=== PATIENT | female | born 1975 | race African-American/Black ===

== ENCOUNTER 2018-06-13 15:20 | Emergency (ER) | payer OTHER ==
[~2018-06-13 15:20] MED LIST: ATOR40TA24 PO; OXYC-374 PO
--- NOTE | 2018-06-13 15:31 | ER Report ---
History and Physical Time Seen By MD: 15:31 Hx. of Stated Complaint: PT STATES SHE NOTED HER HEART RACING WHILE AT WORK, HAS HAD 1 CUP OF COFFEE AT WORK. HAS INCREASED STRESS LATELY HPI/ROS CHIEF COMPLAINT: Racing heart, shortness of breath HISTORY OF PRESENT ILLNESS: 43-year-old female patient presents to emergency r oom with complaint of racing heart and shortness of breath. Patient states this started today while she was at work. 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 She did check her pulse and found her pulse rate to be 99. She did get up and go the bathroom. When she returned her heart rate was 102. Just prior to getting out of the bathroom she checked her pulse again and was 120. Patient states she felt short of breath at that time. She denies having any fevers, chills, nausea, vomiting or diarrhea. Patient states she is not taking any medication for this. Patient states she did have some chest discomfort. She states she's had this chest discomfort in termittently for the past several weeks. She states that typically occurs just once a week. Patient came here for evaluation make sure there is not anything wrong with her heart. She did speak with her sister who is a physician in [place] and was told that she likely has anxiety. REVIEW OF SYSTEMS: Respiratory: As noted above Cardiovascular: As noted above Gastrointestinal: No vomiting, no abdominal pain. Musculoskeletal: No back pain. Allergies: Coded Allergies: No Known Drug Allergies (Unverified , 11/29/13) Home Meds Active Scripts Potassium Chloride (KLOR-CON 10) 10 Meq Tablet.er, 10 MEQ PO QDAY, #14 TAB Prov:GENESIS MORALES DIRECTOR OF PROPERTY MANAGEMENT 06/13/18 Reported Medications Atorvastatin Calcium (LIPITOR) 40 Mg Tablet, 1 TAB PO QDAY, TAB TAKE ONE TABLET BY MOUTH ONCE A DAY AT BED TIME 11/29/13 Discontinued Reported Medications Oxycodone Hcl/Acetaminophen (OXYCODON-ACETAMINOPHEN 7.5-325) 1 Each Tablet, 1 EACH PO 05/08/14 Past Medical/Surgical History Patient has a past medical history of migraines, hyperlipidemia, shortness of breath, fibroids. Patient has a surgical history of uterine fibroids removed. Reviewed Nurses Notes: Yes Hx Smoking: No Smoking Status: Never Smoker Exposure to Second Hand Smoke?: No Hx Substance Use Disorder: No Hx Alcohol Use: No Constitutional Vital Sign - Last 24 Hours 06/13/18 06/13/18 06/13/18 06/13/18 15:24 15:25 15:50 15:54 Temp 98.3 Pulse 117 118 Resp 20 20 B/P (MAP) 154/116 154/116 (129) 136/105 (115) Pulse Ox 98 98 O2 Delivery Room Air 06/13/18 06/13/18 06/13/18 06/13/18 16:21 16:30 16:35 16:45 Pulse 102 Resp 13 B/P (MAP) 139/99 (112) 144/100 (115) 132/94 (107) Pulse Ox 96 06/13/18 06/13/18 06/13/18 06/13/18 16:50 17:00 17:22 17:30 Pulse 96 Resp 7 B/P (MAP) 148/78 (101) 131/94 (106) 130/92 (105) Pulse Ox 96 06/13/18 06/13/18 06/13/18 06/13/18 17:35 17:45 17:50 18:00 Pulse 95 Resp 21 13 B/P (MAP) 130/102 (111) 126/91 (103) Pulse Ox 88 96 Physical Exam General Appearance: The patient is alert, has no immediate need for airway protection and no current signs of toxicity. Respiratory: Chest is non tender, lungs are clear to auscultation. Cardiac: regular rhythm, patient is tachycardic with ventricular rate of 105 bpm Gastrointestinal: Abdomen is soft and non tender, no masses, bowel sounds normal. Musculoskeletal: Neck: Neck is supple and non tender. Extremities have full range of motion and are non tender. Skin: No rashes or lesions. DIFFERENTIAL DIAGNOSIS: After history and physical exam differential diagnosis was considered for shortness of breath including but not limited to pulmonary infectious process, COPD, asthma, pulmonary embolus and congestive heart failure. Medical Decision Making Data Points Result Diagram: 06/13/18 1530 06/13/18 1530 Laboratory Hematology Test 06/13/18 15:30 Red Blood Count 4.83 M/uL (4.17-5.56) Mean Corpuscular Volume 66.0 fL (80.0-96.0) Mean Corpuscular Hemoglobin 20.1 pg (26.0-33.0) Mean Corpuscular Hemoglobin Concent 30.5 g/dL (32.0-36.0) Red Cell Distribution Width 22.2 % (11.5-14.5) Mean Platelet Volume 9.0 fL (7.2-11.1) Neutrophils (%) (Auto) 53.8 % (39.4-72.5) Lymphocytes (%) (Auto) 35.1 % (17.6-49.6) Monocytes (%) (Auto) 10.0 % (4.1-12.4) Eosinophils (%) (Auto) 0.7 % (0.4-6.7) Basophils (%) (Auto) 0.4 % (0.3-1.4) Nucleated RBC Relative Count (auto) 0.1 /100WBC Neutrophils # (Auto) 3.0 K/uL (2.0-7.4) Lymphocytes # (Auto) 2.0 K/uL (1.3-3.6) Monocytes # (Auto) 0.6 K/uL (0.3-1.0) Eosinophils # (Auto) 0.0 K/uL (0.0-0.5) Basophils # (Auto) 0.0 K/uL (0.0-0.1) Nucleated RBC Absolute Count (auto) 0.00 K/uL Peripheral Blood Smear Y/N D-Dimer Quantitative (PE/DVT) 1.33 ug/ml (0-0.50) Urine Color Straw Urine Clarity Clear Urine pH 6.0 pH (4.8-9.5) Urine Specific Purm[place] 1.005 Urine Protein Negative mg/dL (NEGATIVE) Urine Glucose (UA) Negative mg/dL (NEGATIVE) Urine Ketones Negative mg/dL (NEGATIVE) Urine Blood Negative (NEGATIVE) Urine Nitrite Negative (NEGATIVE) Urine Bilirubin Negative (NEGATIVE) Urine Urobilinogen Negative mg/dL (0.2-1.9) Urine Leukocyte Esterase Negative (NEGATIVE) Urine RBC None /HPF (0-2/HPF) Urine WBC <1 /HPF (0-5/HPF) Urine Squamous Epithelial Cells Few /LPF (</=FEW) Urine Bacteria Negative /HPF (NONE-FEW) Urine Mucus None /HPF (NONE-FEW) Sodium Level 136 mmol/L (137-145) Potassium Level 3.0 mmol/L (3.5-5.0) Chloride Level 105 mmol/L (98-107) Carbon Dioxide Level 23 mmol/L (22-31) Blood Urea Nitrogen 11 mg/dl (7-18) Creatinine 0.80 mg/dl (0.52-1.04) Glomerular Filtration Rate Calc > 60.0 Random Glucose 114 mg/dl (75-110) Calcium Level 9.2 mg/dl (8.4-10.2) Magnesium Level 1.7 mg/dl (1.7-2.2) Total Bilirubin 0.4 mg/dl (0.2-1.3) Aspartate Amino Transf (AST/SGOT) 17 U/L (0-35) Alanine Aminotransferase (ALT/SGPT) 16 U/L (0-56) Alkaline Phosphatase 71 U/L (0-126) Troponin I < 0.012 ng/ml Total Protein 8.7 g/dl (6.3-8.2) Albumin 4.5 g/dl (3.5-5.0) Human Chorionic Gonadotropin, Qual Negative (NEGATIVE) Chemistry Test 06/13/18 15:30 White Blood Count 5.6 k/uL (4.5-11.0) Red Blood Count 4.83 M/uL (4.17-5.56) Hemoglobin 9.7 g/dL (12.0-16.0) Hematocrit 31.9 % (34.0-47.0) Mean Corpuscular Volume 66.0 fL (80.0-96.0) Mean Corpuscular Hemoglobin 20.1 pg (26.0-33.0) Mean Corpuscular Hemoglobin Concent 30.5 g/dL (32.0-36.0) Red Cell Distribution Width 22.2 % (11.5-14.5) Platelet Count 293 K/uL (150-450) Mean Platelet Volume 9.0 fL (7.2-11.1) Neutrophils (%) (Auto) 53.8 % (39.4-72.5) Lymphocytes (%) (Auto) 35.1 % (17.6-49.6) Monocytes (%) (Auto) 10.0 % (4.1-12.4) Eosinophils (%) (Auto) 0.7 % (0.4-6.7) Basophils (%) (Auto) 0.4 % (0.3-1.4) Nucleated RBC Relative Count (auto) 0.1 /100WBC Neutrophils # (Auto) 3.0 K/uL (2.0-7.4) Lymphocytes # (Auto) 2.0 K/uL (1.3-3.6) Monocytes # (Auto) 0.6 K/uL (0.3-1.0) Eosinophils # (Auto) 0.0 K/uL (0.0-0.5) Basophils # (Auto) 0.0 K/uL (0.0-0.1) Nucleated RBC Absolute Count (auto) 0.00 K/uL Peripheral Blood Smear Y/N D-Dimer Quantitative (PE/DVT) 1.33 ug/ml (0-0.50) Urine Color Straw Urine Clarity Clear Urine pH 6.0 pH (4.8-9.5) Urine Specific Purmela 1.005 Urine Protein Negative mg/dL (NEGATIVE) Urine Glucose (UA) Negative mg/dL (NEGATIVE) Urine Ketones Negative mg/dL (NEGATIVE) Urine Blood Negative (NEGATIVE) Urine Nitrite Negative (NEGATIVE) Urine Bilirubin Negative (NEGATIVE) Urine Urobilinogen Negative mg/dL (0.2-1.9) Urine Leukocyte Esterase Negative (NEGATIVE) Urine RBC None /HPF (0-2/HPF) Urine WBC <1 /HPF (0-5/HPF) Urine Squamous Epithelial Cells Few /LPF (</=FEW) Urine Bacteria Negative /HPF (NONE-FEW) Urine Mucus None /HPF (NONE-FEW) Glomerular Filtration Rate Calc > 60.0 Calcium Level 9.2 mg/dl (8.4-10.2) Magnesium Level 1.7 mg/dl (1.7-2.2) Total Bilirubin 0.4 mg/dl (0.2-1.3) Aspartate Amino Transf (AST/SGOT) 17 U/L (0-35) Alanine Aminotransferase (ALT/SGPT) 16 U/L (0-56) Alkaline Phosphatase 71 U/L (0-126) Troponin I < 0.012 ng/ml Total Protein 8.7 g/dl (6.3-8.2) Albumin 4.5 g/dl (3.5-5.0) Human Chorionic Gonadotropin, Qual Negative (NEGATIVE) Coagulation Test 06/13/18 15:30 D-Dimer Quantitative (PE/DVT) 1.33 ug/ml Urinalysis Test 06/13/18 15:30 Urine Color Straw Urine Clarity Clear Urine pH 6.0 pH (4.8-9.5) Urine Specific Purmela 1.005 Urine Protein Negative mg/dL (NEGATIVE) Urine Glucose (UA) Negative mg/dL (NEGATIVE) Urine Ketones Negative mg/dL (NEGATIVE) Urine Blood Negative (NEGATIVE) Urine Nitrite Negative (NEGATIVE) Urine Bilirubin Negative (NEGATIVE) Urine Urobilinogen Negative mg/dL (0.2-1.9) Urine Leukocyte Esterase Negative (NEGATIVE) Urine RBC None /HPF (0-2/HPF) Urine WBC <1 /HPF (0-5/HPF) Urine Squamous Epithelial Cells Few /LPF (</=FEW) Urine Bacteria Negative /HPF (NONE-FEW) Urine Mucus None /HPF (NONE-FEW) EKG/Imaging EKG Interpretation 12 lead EKG: Rhythm: Sinus tachycardia with ventricular rate of 107 bpm Cummings: normal QRS: normal ST segments: normal Imaging CT angiogram chest with contrast Indication: Tachycardia. Elevated d-dimer. Comparison: 11/29/2013. Technique: Axial CT images are obtained through the chest after administration of 75 mL Isovue 370 IV contrast. Reformatted coronal and sagittal images were reviewed as well as coronal MIP images. One of the following dose optimization techniques was utilized in the performance of this exam: automated exposure control; adjustment of the mA and/or kV according to the patient's size; or use of an iterative reconstruction technique. Specific details can be referenced in the facility's radiology CT exam operational policy. FINDINGS: No evidence of filling defect within the pulmonary vasculature to suggest pulmonary embolus. The heart is normal size without pericardial effusion. The aorta shows no aneurysm or dissection. The mediastinum and hilar regions show no enlarged lymph nodes or abnormal density. Lungs show no consolidation, pleural effusion, pneumothorax, nodule or focal interstitial opacities. Airways are clear. Bony structures show no acute fractures or aggressive bony lesions. Chest wall shows no enlarged axillary lymph nodes or masses. The anterior aspect liver does show subcentimeter hypodensity which is too small characterize and statistically tiny cyst. Upper abdomen is otherwise unremarkable. IMPRESSION: 1. No evidence of pulmonary embolus. 2. No acute cardiothoracic abnormality Report Dictated By: Trey Subramanian at 06/13/2018 5:26 PM Report E-Signed By: Trey Subramanian at 06/13/2018 5:33 PM HISTORY: chests discomfort DATE: 06/13/2018 4:43 PM TECHNIQUE: CHEST PA LAT COMPARISON: none FINDINGS: The cardiomediastinal silhouette is of normal size and contour. No pleural effusion. No pneumothorax. No consolidation. The lungs are adequately expanded. IMPRESSION: Normal chest. Report Dictated By: Sonali Paris MD at 06/13/2018 4:47 PM Report E-Signed By: Sonali Paris MD at 06/13/2018 4:51 PM ED Course/Re-evaluation ED Course Patient was admitted to an exam room, history and physical were obtained. Differential diagnoses were considered. On examination lungs are clear, heart is regular although tachycardic, abdomen is soft nontender. A CBC, CMP, troponin, EKG, chest x-ray, d-dimer, urinalysis were done. Lab results were unremarkable except the patient did have an elevated d-dimer of 1.33 as well as a low potassium of 3.0. At that time I did order a magnesium level. Magnesium level was normal at 1.7. Chest x-ray showed no acute cardio pulmonic processes. A CT scan of the chest was ordered due to the elevated d-dimer and shortness of breath. The results of that were also negative. EKG showed a sinus tachycardia, troponin was negative. I discussed the findings with the patient. Patient was also noted to be anemic at 9.7. She states that that is normal for her. She states that she has been on iron in the past, however she is not able to felicitas erate it. Patient states she is not taking anything for blood pressure and no diuretics. I'm unsure as to the reason of her low potassium. We will go ahead and put her on a 2 mEq potassium tablets for the next 2 weeks. I would like her to follow-up with her primary care provider next week for repeat lab tests. Patient did receive 40 mEq of potassium orally here in the emergency room. We will go ahead and discharge patient home at this time. I'm unsure as to the cause of her shortness of breath and chest pain. It could be related to her anemia but also related to her hypokalemia. I would like her to follow-up with her primary care provider. We will have her take the medication as directed and see if that doesn't help with her symptoms. Patient and her verbalized understanding and agreement with plan. Decision to Disposition Date: Jun 13, 2018 Decision to Disposition Time: 17:55 Depart Departure Latest Vital Signs Vital Signs Date Time Temp Pulse Resp B/P (MAP) Pulse Ox O2 Delivery O2 Flow Rate FiO2 06/13/18 18:00 126/91 (103) 06/13/18 17:50 95 13 96 06/13/18 15:24 98.3 Room Air Impression: Primary Impression: Chest pain Condition: Improved Disposition: HOME OR SELF-CARE Referrals: BLANE GAUTAM MD (PCP) New Scripts Potassium Chloride (KLOR-CON 10) 10 Meq Tablet.er 10 MEQ PO QDAY, #14 TAB Prov: GENESIS OMRALES 06/13/18 Patient Instructions: Chest Pain (ED) Additional Instructions: Continue with normal diet. Follow up with Dr. Narayanan in the next week. Talk with him about your potassium, I am concerned that is being loss with urination, and your anemia, find something that works for iron replacement. Return to the ER if condition worsens. Activity as tolerated. Problem Qualifiers Primary Impression: Chest pain Chest pain type: other chest pain Qualified Codes: R07.89 - Other chest pain GENESIS MORALES Jun 13, 2018 15:31
[2018-06-13] MEDS ORDERED: ASPIRIN 81 MG CHEW PO ONE (16:05)
[2018-06-13] MEDS ORDERED: NS(*) 0.9% 1000 ML BAG 1,000 ML IV ONE (16:05)
[2018-06-13 16:27] LABS: PLATELET COUNT, AUTOMATED 293 K/uL (150-450)
--- NOTE | 2018-06-13 16:42 | EKG ---
FACILITY: [facility] - [place] PATIENT NAME: ALENA ARAGON : [id number] MR: [id number] V: [id number] EXAM DATE: ORDERING PHYSICIAN: GENESIS MORALES TECHNOLOGIST: BASIM Green Reason : HIGH HR Blood Pressure : / mmHG Vent. Rate : 107 BPM Atrial Rate : 107 BPM P-R Int : 156 ms QRS Dur : 084 ms QT Int : 340 ms P-R-T Axes : 056 043 061 degrees QTc Int : 453 ms Sinus tachycardia No acute appearing findings When compared with ECG of 29-NOV-2013 20:16, No significant change was found Confirmed by MOHAN MANCERA ([id number]) on 06/13/2018 7:44:24 PM Referred By: LAURA Confirmed By:MOHAN MANCERA
--- NOTE | 2018-06-13 16:55 | RADIOLOGY IMAGING REPORT ---
FACILITY: [facility] [place]IENT NAME: Nanette Quezada : 1975 MR: [id number] V: [id number] EXAM DATE: ORDERING PHYSICIAN: GENESIS MORALES TECHNOLOGIST: Location: [facility] - [place] Patient: Nanette Quezada : 1975 Visit/Account:[id number] Date of Sevice: 06/13/2018 HISTORY: chests discomfort DATE: 06/13/2018 4:43 PM TECHNIQUE: CHEST PA LAT COMPARISON: none FINDINGS: The cardiomediastinal silhouette is of normal size and contour. No pleural effusion. No pne umothorax. No consolidation. The lungs are adequately expanded. IMPRESSION: Normal chest. Report Dictated By: Sonali Paris MD at 06/13/2018 4:47 PM Report E-Signed By: Sonali Paris MD at 06/13/2018 4:51 PM [id number]
[2018-06-13] MEDS ORDERED: IOPAMIDOL 76% 50 ML INFUS BTL 100 ML ONE (17:00)
[2018-06-13] MEDS ORDERED: NS(*) 0.9% 50 ML BAG 50 ML ONE (17:00)
[2018-06-13] MEDS ORDERED: POTASSIUM CHL 20 MEQ TABCR PO ONE (17:05)
--- NOTE | 2018-06-13 17:36 | RADIOLOGY IMAGING REPORT ---
FACILITY: [facility] - [place] PATIENT NAME: Nanette Quezada : 1975 MR: [id number] V: [id number] EXAM DATE: ORDERING PHYSICIAN: GENESIS MORALES TECHNOLOGIST: Location: [facility] - [place] Patient: Nanette Quezada : 1975 Visit/Account:[id number] Date of Sevice: 06/13/2018 CT angiogram chest with contrast Indication: Tachycardia. Elevated d-dimer. Comparison: 11/29/2013. Technique: Axial CT images are obtained through the chest after administration of 75 mL Isovue 370 IV contrast. Reformatted coronal and sagittal images were reviewed as well as coronal MIP images. One of the following dose optimization techniques was utilized in the performance of this exam: auto mated exposure control; adjustment of the mA and/or kV according to the patient's size; or use of an iterative reconstruction technique. Specific details can be referenced in the facility's radiology C T exam operational policy. FINDINGS: No evidence of filling defect within the pulmonary vasculature to suggest pulmonary embolus. The heart is normal size without pericardial effusion. The aorta shows no aneurysm or dissection. The mediastinum and hilar regions show no enlarged lymph nodes or abnormal density. Lungs show no consolidation, pleural effusion, pneumothorax, nodule or focal interstitial opacities. Airways are clear. Bony structures show no acute fractures or aggressive bony lesions. Chest wall shows no enlarged axil santy lymph nodes or masses. The anterior aspect liver does show subcentimeter hypodensity which is too small characterize and sta tistically tiny cyst. Upper abdomen is otherwise unremarkable. IMPRESSION: 1. No evidence of pulmonary embolus. 2. No acute cardiothoracic abnormality Report Dictated By: Trey Subramanian at 06/13/2018 5:26 PM Report E-Signed By: Trey Subramanian at 06/13/2018 5:33 PM WSN:[id number]
[2018-06-13] MEDS ORDERED: POTA-23 PO (17:52)
[2018-06-13 18:00] VITALS: BP 126/91
== END 2018-06-13 18:06 | disposition home or self-care (01) ==
LOC: ER 15:47
DX: R07.89 Other chest pain (principal); R00.0 Tachycardia, unspecified
CPT/HCPCS: 71046; 71275; 81001; 83735; 84443; 84484; 84703; 85025; 85379; 93005; 96360; 96361; 99284; J7030; J7050; Q9967; 82040; 82247; 82310; 82374; 82435; 82565; 82947; 84075; 84132; 84155; 84295; 84450; 84460; 84520

== ENCOUNTER → 2018-06-28 | Outpatient (REF) | payer OTHER ==
[~2018-06-28] MED LIST changes: +POTA-23 PO
== END ==
LOC: ZZSENDIN 16:23
PROVIDERS: ATTEND Family Medicine
DX: D50.9 Iron deficiency anemia, unspecified (principal)
CPT/HCPCS: 83021

== ENCOUNTER → 2018-07-20 | Outpatient (REF) | payer OTHER | LOC: ZZSENDIN 17:03 | PROVIDERS: ATTEND Family Medicine | DX: D50.9 Iron deficiency anemia, unspecified (principal) | CPT/HCPCS: 82728 ==